=== PATIENT | male | born 1940 | race Caucasian/White ===

== ENCOUNTER 2016-09-23 15:32 | Inpatient (IN) | payer MEDICARE, BC ==
[~2016-09-23] VITALS: Ht 165.1 cm; Wt 87.8 kg
[~2016-09-23 15:32] MED LIST: ATOR20TA PO; CALC1CAP8 PO; CARB1TAB22 PO; CARV3.1212 PO; DABI150C PO; DORZ10DR21 TP; FOLI20CA PO; FURO40TA6 PO; GABA600T2 PO; LATA2.5D2 TP; LISI5TAB7 PO; POTA10TA11 PO; VIT1TABL32 PO; Will bring list DOS
[2016-09-23] MEDS ORDERED: KETOROLAC 30 MG/1 ML IVPush ONE (16:30)
[2016-09-23] MEDS ORDERED: SODIUM CHLORIDE FLUSH 10ML SYR IVF ONE (16:30)
[2016-09-23] MEDS ORDERED: LORazepam 2 MG/ML, 1ML IVPush ONE (16:30)
[2016-09-23 16:32] LABS: HEMATOCRIT 42.2 % (39.2-51.8); WHITE BLOOD COUNT 6.1 x10^3/uL (3.4-10)
[2016-09-23 16:37] LABS: ASPARTATE AMINO TRANSFERASE 30 U/L (15-37); BLOOD UREA NITROGEN 18 mg/dL (7-18)
[2016-09-23] MEDS ORDERED: KETOROLAC 30 MG/1 ML ONE (16:43)
[2016-09-23] MEDS ORDERED: LORazepam 2 MG/ML, 1ML ONE (16:44)
[2016-09-23] MEDS ORDERED: VIT1TABL32 PO (17:00)
[2016-09-23] MEDS ORDERED: POTASSIUM PO (17:00)
[2016-09-23] MEDS ORDERED: HYDR-883 PO (17:00)
[2016-09-23] MEDS ORDERED: CARB1TAB14 PO (17:00)
[2016-09-23 18:19] LABS: PATH.CAST-FLAG NOT PRESENT; SPERM-FLAG NOT PRESENT; SRC-FLAG NOT PRESENT; XTAL-FLAG NOT PRESENT; YLC-FLAG NOT PRESENT
[2016-09-23] MEDS ORDERED: ASPIRIN 81 MG TABLET CHEW PO ONE (19:00)
[2016-09-23] MEDS ORDERED: ASPIRIN 81 MG TABLET CHEW ONE (19:43)
[2016-09-23] MEDS ORDERED: ENTACAPONE PO SCH (21:00)
[2016-09-23] MEDS ORDERED: DOCUSATE 100 MG CAPSULE PO PRN (21:00)
[2016-09-23] MEDS ORDERED: LEVODOPA PO SCH (21:00)
[2016-09-23] MEDS: DABIGATRAN 150 MG CAPSULE PO SCH (21:00)
[2016-09-23] MEDS ORDERED: CARBIDOPA PO SCH (21:00)
[2016-09-23] MEDS ORDERED: POLYETHYLENE GLYCOL 17 GM PACKET PO PRN (21:00)
[2016-09-23] MEDS ORDERED: ONDANSETRON 2MG/ML, 2ML IVPush PRN (21:00)
[2016-09-23] MEDS ORDERED: BISACODYL 10 MG SUPP PR PRN (21:00)
[2016-09-23] MEDS: GABAPENTIN 300 MG CAPSULE PO SCH (21:00)
[2016-09-24] VITALS (7 sets, daily range): BP systolic 151–161; BP diastolic 95–111
[2016-09-24] MEDS: DORZOLAMIDE OPHTH 2%, 10ML EACHEYE SCH ×3 (01:39→23:34)
[2016-09-24] MEDS: ATORVASTATIN 20 MG TABLET PO SCH ×2 (01:40→23:36)
[2016-09-24] MEDS: CARVEDILOL 3.125 MG TABLET PO SCH ×3 (01:40→23:36)
[2016-09-24] MEDS: CARBIDOPA/LEVODOPA 25 MG/100 MG TABLET PO SCH ×7 (01:40→23:36)
[2016-09-24] MEDS: GABAPENTIN 300 MG CAPSULE PO SCH (09:00)
[2016-09-24] MEDS: LATANOPROST OPHTH 0.005%, 2.5ML EACHEYE SCH (10:05)
[2016-09-24] MEDS: TIMOLOL OPHTH 0.25%, 5ML EACHEYE SCH ×2 (10:06→21:00)
[2016-09-24] MEDS: FOLIC ACID 1 MG TABLET PO SCH (10:16)
[2016-09-24] MEDS: FUROSEMIDE 40 MG TABLET PO SCH (10:17)
[2016-09-24] MEDS: LISINOPRIL 5 MG TABLET PO SCH (10:17)
[2016-09-24] MEDS: DABIGATRAN 150 MG CAPSULE PO SCH (11:24)
[2016-09-24] MEDS: POTASSIUM CHLORIDE 10 MEQ TABLET.ER PO SCH (11:24)
[2016-09-24] MEDS: ENTACAPONE 200 MG TABLET PO SCH ×2 (11:29→23:36)
[2016-09-24] MEDS: GABAPENTIN 250 MG/5 ML ORAL SOL PO SCH ×4 (11:30→23:36)
[2016-09-24 11:56] LABS: PATH.CAST-FLAG NOT PRESENT; SPERM-FLAG NOT PRESENT; SRC-FLAG NOT PRESENT; XTAL-FLAG NOT PRESENT; YLC-FLAG NOT PRESENT
[2016-09-24] MEDS: SODIUM CHLORIDE 0.9% 1,000 ML IV SCH (16:49)
[2016-09-24 22:51] LABS: HEMATOCRIT 45.8 % (39.2-51.8); HEMOGLOBIN 15.6 g/dL (13.7-18.0)
[2016-09-24 23:10] LABS: GAS OBC PASS; GASTRIC OCCULT BLD POSITIVE (NEGATIVE); GASTRIC PH 1 (1-7)
[2016-09-25] MEDS: PANTOPRAZOLE 40 MG IV IVPush SCH ×2 (00:26→09:01)
[2016-09-25 01:39] VITALS: BP 157/92
[2016-09-25 04:44] LABS: HEMATOCRIT 41.9 % (39.2-51.8); HEMOGLOBIN 14.3 g/dL (13.7-18.0)
[2016-09-25] MEDS: CARBIDOPA/LEVODOPA 25 MG/100 MG TABLET PO SCH ×6 (06:03→22:10)
[2016-09-25 07:38] VITALS: BP 157/92
[2016-09-25] MEDS ORDERED: GABAPENTIN 250 MG/5 ML ORAL SOL PO SCH (09:00)
[2016-09-25] MEDS: TIMOLOL OPHTH 0.25%, 5ML EACHEYE SCH ×2 (09:00→20:03)
[2016-09-25] MEDS: POTASSIUM CHLORIDE 10 MEQ TABLET.ER PO SCH ×2 (09:00→09:02)
[2016-09-25] MEDS: GABAPENTIN 250 MG/5 ML ORAL SOL PO SCH ×3 (09:00→23:19)
[2016-09-25] MEDS: CARVEDILOL 3.125 MG TABLET PO SCH ×2 (09:01→20:06)
[2016-09-25] MEDS: LATANOPROST OPHTH 0.005%, 2.5ML EACHEYE SCH (09:01)
[2016-09-25] MEDS: FOLIC ACID 1 MG TABLET PO SCH (09:01)
[2016-09-25] MEDS: LISINOPRIL 5 MG TABLET PO SCH (09:03)
[2016-09-25] MEDS: ENTACAPONE 200 MG TABLET PO SCH ×2 (09:05→20:05)
[2016-09-25] MEDS: DORZOLAMIDE OPHTH 2%, 10ML EACHEYE SCH ×2 (09:05→20:02)
[2016-09-25] MEDS: SODIUM CHLORIDE 0.9% 1,000 ML IV SCH ×2 (09:08→22:08)
[2016-09-25 09:19] LABS: HEMATOCRIT 42.4 % (39.2-51.8); HEMOGLOBIN 14.3 g/dL (13.7-18.0); WHITE BLOOD COUNT 11.9 x10^3/uL (3.4-10)
[2016-09-25 09:24] LABS: BLOOD UREA NITROGEN 27 mg/dL (7-18)
[2016-09-25] MEDS: FUROSEMIDE 40 MG TABLET PO SCH (09:36)
[2016-09-25] MEDS ORDERED: CARBIDOPA/LEVODOPA 10 MG/100 MG TABLET PO PRN (11:30)
[2016-09-25 14:09] VITALS: BP 142/95
[2016-09-25] MEDS: HYDROcodone/APAP 5/325 TABLET PO PRN (15:18)
[2016-09-25 19:15] VITALS: BP 160/97
[2016-09-25] MEDS: ATORVASTATIN 20 MG TABLET PO SCH (20:05)
[2016-09-25] MEDS ORDERED: CARBIDOPA/LEVODOPA CR 25 MG/100 MG TABLET PO SCH (21:00)
[2016-09-26 00:25] VITALS: BP 151/97
[2016-09-26 00:33] LABS: HEMATOCRIT 43.6 % (39.2-51.8); HEMOGLOBIN 14.6 g/dL (13.7-18.0); WHITE BLOOD COUNT 16.4 x10^3/uL (3.4-10)
[2016-09-26] MEDS ORDERED: VANCOMYCIN PER PHARMACY MC PRN (01:00)
[2016-09-26] MEDS ORDERED: PHARMACOKINETIC MONITORING MC PRN (01:30)
[2016-09-26] MEDS: PIPERACILLIN/TAZO/PMX 3.375GM 50 ML IV SCH ×4 (01:37→18:19)
[2016-09-26] MEDS ORDERED: VANCOMYCIN 1,600 MG in SODIUM CHLORIDE 0.9% 250 ML IV ONE (02:00)
[2016-09-26 05:02] LABS: HEMATOCRIT 43.9 % (39.2-51.8); HEMOGLOBIN 14.5 g/dL (13.7-18.0); WHITE BLOOD COUNT 16.2 x10^3/uL (3.4-10)
[2016-09-26 05:11] LABS: ASPARTATE AMINO TRANSFERASE 27 U/L (15-37); BLOOD UREA NITROGEN 28 mg/dL (7-18)
[2016-09-26] MEDS: CARBIDOPA/LEVODOPA 25 MG/100 MG TABLET PO SCH ×6 (06:32→20:58)
[2016-09-26 07:19] VITALS: BP 122/99
[2016-09-26] MEDS: TIMOLOL OPHTH 0.25%, 5ML EACHEYE SCH ×2 (09:00→21:00)
[2016-09-26] MEDS: ENTACAPONE 200 MG TABLET PO SCH ×2 (09:00→20:58)
[2016-09-26] MEDS: POTASSIUM CHLORIDE 10% 20 MEQ/15 ML UDC PO SCH (09:32)
[2016-09-26] MEDS: LATANOPROST OPHTH 0.005%, 2.5ML EACHEYE SCH (09:32)
[2016-09-26] MEDS: GABAPENTIN 250 MG/5 ML ORAL SOL PO SCH ×3 (09:32→21:00)
[2016-09-26] MEDS: DORZOLAMIDE OPHTH 2%, 10ML EACHEYE SCH ×2 (09:32→21:00)
[2016-09-26] MEDS: PANTOPRAZOLE 40 MG IV IVPush SCH (09:33)
[2016-09-26] MEDS: FUROSEMIDE 40 MG TABLET PO SCH (09:34)
[2016-09-26] MEDS: FOLIC ACID 1 MG TABLET PO SCH (09:34)
[2016-09-26] MEDS: CARVEDILOL 3.125 MG TABLET PO SCH ×2 (09:34→21:00)
[2016-09-26] MEDS: LISINOPRIL 5 MG TABLET PO SCH (09:35)
[2016-09-26 12:57] VITALS: BP 108/76
[2016-09-26] MEDS: SODIUM CHLORIDE 0.9% 1,000 ML IV SCH (12:59)
[2016-09-26] MEDS: ENOXAPARIN 80 MG/0.8 ML SQ SCH (15:05)
[2016-09-26 19:07] VITALS: BP 120/79
[2016-09-26] MEDS: ATORVASTATIN 20 MG TABLET PO SCH (20:58)
[2016-09-27] MEDS: SODIUM CHLORIDE 0.9% 1,000 ML IV SCH (01:44)
[2016-09-27] MEDS: PIPERACILLIN/TAZO/PMX 3.375GM 50 ML IV SCH ×4 (01:44→19:38)
[2016-09-27] MEDS: VANCOMYCIN 1,600 MG in SODIUM CHLORIDE 0.9% 250 ML IV SCH (02:39)
[2016-09-27 02:53] VITALS: BP 116/74
[2016-09-27] MEDS: CARBIDOPA/LEVODOPA 25 MG/100 MG TABLET PO SCH ×6 (06:22→21:21)
[2016-09-27] MEDS: ENOXAPARIN 80 MG/0.8 ML SQ SCH ×2 (06:22→18:33)
[2016-09-27 07:28] VITALS: BP 141/89
[2016-09-27] MEDS: LISINOPRIL 5 MG TABLET PO SCH (10:22)
[2016-09-27] MEDS: PANTOPRAZOLE 40 MG IV IVPush SCH (10:22)
[2016-09-27] MEDS: POTASSIUM CHLORIDE 10% 20 MEQ/15 ML UDC PO SCH (10:22)
[2016-09-27] MEDS: ENTACAPONE 200 MG TABLET PO SCH ×2 (10:23→21:00)
[2016-09-27] MEDS: FOLIC ACID 1 MG TABLET PO SCH (10:23)
[2016-09-27] MEDS: CARVEDILOL 3.125 MG TABLET PO SCH ×2 (10:23→21:21)
[2016-09-27] MEDS: FUROSEMIDE 40 MG TABLET PO SCH (10:23)
[2016-09-27] MEDS: GABAPENTIN 250 MG/5 ML ORAL SOL PO SCH ×3 (10:37→21:22)
[2016-09-27] MEDS: DORZOLAMIDE OPHTH 2%, 10ML EACHEYE SCH ×2 (10:39→21:22)
[2016-09-27] MEDS: LATANOPROST OPHTH 0.005%, 2.5ML EACHEYE SCH (10:39)
[2016-09-27] MEDS: TIMOLOL OPHTH 0.25%, 5ML EACHEYE SCH ×2 (10:39→21:00)
[2016-09-27] MEDS: POTASSIUM PHOSPHATE 44 MEQ in SODIUM CHLORIDE 0.9% 500 ML IV SCH ×2 (12:25→18:33)
[2016-09-27 14:29] VITALS: BP 118/82
[2016-09-27 19:27] VITALS: BP 133/95
[2016-09-27] MEDS: ATORVASTATIN 20 MG TABLET PO SCH (21:20)
[2016-09-28 00:40] LABS: HEMATOCRIT 39.9 % (39.2-51.8); HEMOGLOBIN 13.2 g/dL (13.7-18.0); WHITE BLOOD COUNT 10.1 x10^3/uL (3.4-10)
[2016-09-28 00:41] LABS: BLOOD UREA NITROGEN 24 mg/dL (7-18)
[2016-09-28 01:24] VITALS: BP 159/94
[2016-09-28] MEDS: PIPERACILLIN/TAZO/PMX 3.375GM 50 ML IV SCH ×4 (01:59→18:41)
[2016-09-28] MEDS: SODIUM CHLORIDE 0.9% 1,000 ML IV SCH (06:21)
[2016-09-28] MEDS: ENOXAPARIN 80 MG/0.8 ML SQ SCH ×2 (06:22→18:42)
[2016-09-28] MEDS: CARBIDOPA/LEVODOPA 25 MG/100 MG TABLET PO SCH ×6 (06:22→20:55)
[2016-09-28 06:45] VITALS: BP 157/107
[2016-09-28] MEDS: TIMOLOL OPHTH 0.25%, 5ML EACHEYE SCH ×2 (09:00→20:54)
[2016-09-28] MEDS: ENTACAPONE 200 MG TABLET PO SCH ×2 (09:00→20:56)
[2016-09-28] MEDS: DORZOLAMIDE OPHTH 2%, 10ML EACHEYE SCH ×2 (10:28→20:53)
[2016-09-28] MEDS: LATANOPROST OPHTH 0.005%, 2.5ML EACHEYE SCH (10:29)
[2016-09-28] MEDS: PANTOPRAZOLE 40 MG IV IVPush SCH (10:30)
[2016-09-28] MEDS: CARVEDILOL 3.125 MG TABLET PO SCH ×2 (10:30→20:56)
[2016-09-28] MEDS: FOLIC ACID 1 MG TABLET PO SCH (10:30)
[2016-09-28] MEDS: FUROSEMIDE 40 MG TABLET PO SCH (10:30)
[2016-09-28] MEDS: LISINOPRIL 5 MG TABLET PO SCH (10:30)
[2016-09-28] MEDS: POTASSIUM CHLORIDE 10% 20 MEQ/15 ML UDC PO SCH (10:31)
[2016-09-28] MEDS: GABAPENTIN 250 MG/5 ML ORAL SOL PO SCH ×3 (10:31→20:54)
[2016-09-28 13:21] VITALS: BP 148/71
[2016-09-28] MEDS: VANCOMYCIN 1,600 MG in SODIUM CHLORIDE 0.9% 250 ML IV SCH (14:00)
[2016-09-28] MEDS ORDERED: POTASSIUM CHLORIDE 40 MEQ in SODIUM CHLORIDE 0.9% 500 ML IV ONE (17:30)
[2016-09-28 19:13] VITALS: BP 163/94
[2016-09-28] MEDS: ATORVASTATIN 20 MG TABLET PO SCH (20:55)
[2016-09-29 00:18] VITALS: BP 134/93
[2016-09-29] MEDS: PIPERACILLIN/TAZO/PMX 3.375GM 50 ML IV SCH ×4 (01:19→18:31)
[2016-09-29 05:35] LABS: HEMOGLOBIN 13.4 g/dL (13.7-18.0); WHITE BLOOD COUNT 8.6 x10^3/uL (3.4-10)
[2016-09-29] MEDS: ENOXAPARIN 80 MG/0.8 ML SQ SCH ×2 (05:41→17:11)
[2016-09-29] MEDS: CARBIDOPA/LEVODOPA 25 MG/100 MG TABLET PO SCH ×6 (05:41→22:30)
[2016-09-29 05:45] LABS: BLOOD UREA NITROGEN 19 mg/dL (7-18)
[2016-09-29 07:25] VITALS: BP 159/103
[2016-09-29] MEDS: ENTACAPONE 200 MG TABLET PO SCH ×2 (09:00→22:29)
[2016-09-29] MEDS: TIMOLOL OPHTH 0.25%, 5ML EACHEYE SCH ×2 (09:00→21:00)
[2016-09-29] MEDS: GABAPENTIN 250 MG/5 ML ORAL SOL PO SCH ×3 (09:25→22:30)
[2016-09-29] MEDS: DORZOLAMIDE OPHTH 2%, 10ML EACHEYE SCH ×2 (09:25→22:31)
[2016-09-29] MEDS: LATANOPROST OPHTH 0.005%, 2.5ML EACHEYE SCH ×2 (09:25→22:30)
[2016-09-29] MEDS: POTASSIUM CHLORIDE 10% 20 MEQ/15 ML UDC PO SCH (09:25)
[2016-09-29] MEDS: PANTOPRAZOLE 40 MG IV IVPush SCH (09:25)
[2016-09-29] MEDS: LISINOPRIL 5 MG TABLET PO SCH (09:26)
[2016-09-29] MEDS: FUROSEMIDE 40 MG TABLET PO SCH (09:26)
[2016-09-29] MEDS: FOLIC ACID 1 MG TABLET PO SCH (09:26)
[2016-09-29] MEDS: CARVEDILOL 3.125 MG TABLET PO SCH ×2 (09:26→22:30)
[2016-09-29] MEDS: SODIUM CHLORIDE 0.9% 1,000 ML IV SCH ×2 (09:27→22:32)
[2016-09-29 12:46] VITALS: BP 145/75
[2016-09-29 20:07] VITALS: BP 167/113
[2016-09-29] MEDS: ATORVASTATIN 20 MG TABLET PO SCH (22:30)
[2016-09-30 01:23] VITALS: BP 144/93
[2016-09-30] MEDS: PIPERACILLIN/TAZO/PMX 3.375GM 50 ML IV SCH ×4 (01:42→21:10)
[2016-09-30] MEDS: VANCOMYCIN 1,600 MG in SODIUM CHLORIDE 0.9% 250 ML IV SCH (02:50)
[2016-09-30] MEDS: CARBIDOPA/LEVODOPA 25 MG/100 MG TABLET PO SCH ×8 (06:08→21:59)
[2016-09-30] MEDS: ENOXAPARIN 80 MG/0.8 ML SQ SCH ×2 (06:09→17:26)
[2016-09-30 07:05] VITALS: BP_SYST 177; BP_SYST 190; BP_DIAS 123; BP_DIAS 132
[2016-09-30] MEDS: TIMOLOL OPHTH 0.25%, 5ML EACHEYE SCH ×2 (08:59→20:41)
[2016-09-30] MEDS: DORZOLAMIDE OPHTH 2%, 10ML EACHEYE SCH ×2 (09:06→20:40)
[2016-09-30] MEDS: PANTOPRAZOLE 40 MG IV IVPush SCH (09:07)
[2016-09-30] MEDS: POTASSIUM CHLORIDE 10% 20 MEQ/15 ML UDC PO SCH (09:16)
[2016-09-30] MEDS: FUROSEMIDE 40 MG TABLET PO SCH (09:54)
[2016-09-30] MEDS: FOLIC ACID 1 MG TABLET PO SCH (09:55)
[2016-09-30] MEDS: LISINOPRIL 5 MG TABLET PO SCH (09:55)
[2016-09-30] MEDS: CARVEDILOL 3.125 MG TABLET PO SCH ×2 (09:55→20:43)
[2016-09-30] MEDS: ENTACAPONE 200 MG TABLET PO SCH ×3 (09:55→21:00)
[2016-09-30] MEDS: GABAPENTIN 250 MG/5 ML ORAL SOL PO SCH ×3 (09:57→20:43)
[2016-09-30 14:05] VITALS: BP_SYST 175; BP_SYST 198; BP_DIAS 128; BP_DIAS 133
[2016-09-30] MEDS: HYDROcodone/APAP 5/325 TABLET PO PRN (14:24)
[2016-09-30] MEDS: SODIUM CHLORIDE 0.9% 1,000 ML IV SCH (14:25)
[2016-09-30] MEDS ORDERED: DOCUSATE 100 MG CAPSULE PO PRN (19:00)
[2016-09-30] MEDS ORDERED: ONDANSETRON 2MG/ML, 2ML IVPush PRN (19:00)
[2016-09-30] MEDS ORDERED: BISACODYL 10 MG SUPP PR PRN (19:00)
[2016-09-30 19:52] VITALS: BP 173/104
[2016-09-30] MEDS: ATORVASTATIN 20 MG TABLET PO SCH ×2 (20:43→21:59)
[2016-09-30] MEDS ORDERED: POTASSIUM PHOSPHATE 44 MEQ in SODIUM CHLORIDE 0.9% 500 ML IV ONE (21:00)
[2016-09-30] MEDS: LISINOPRIL 10 MG TABLET PO SCH (21:58)
[2016-09-30] MEDS: CARVEDILOL 6.25 MG TABLET PO SCH (21:58)
[2016-10-01 01:52] VITALS: BP 156/92
[2016-10-01] MEDS: PIPERACILLIN/TAZO/PMX 3.375GM 50 ML IV SCH ×4 (02:23→21:11)
[2016-10-01 05:28] LABS: HEMATOCRIT 40.5 % (39.2-51.8); HEMOGLOBIN 13.4 g/dL (13.7-18.0)
[2016-10-01 05:35] LABS: BLOOD UREA NITROGEN 17 mg/dL (7-18)
[2016-10-01] MEDS: CARBIDOPA/LEVODOPA 25 MG/100 MG TABLET PO SCH ×6 (05:38→21:10)
[2016-10-01] MEDS: ENOXAPARIN 80 MG/0.8 ML SQ SCH ×2 (05:39→18:10)
[2016-10-01] MEDS ORDERED: VANCOMYCIN 1,600 MG in SODIUM CHLORIDE 0.9% 250 ML IV SCH (06:00)
[2016-10-01 08:25] VITALS: BP 124/79
[2016-10-01] MEDS: TIMOLOL OPHTH 0.25%, 5ML EACHEYE SCH ×2 (10:10→21:00)
[2016-10-01] MEDS: DORZOLAMIDE OPHTH 2%, 10ML EACHEYE SCH ×2 (10:10→21:11)
[2016-10-01] MEDS: PANTOPRAZOLE 40 MG IV IVPush SCH (10:11)
[2016-10-01] MEDS: ENTACAPONE 200 MG TABLET PO SCH ×2 (10:11→21:00)
[2016-10-01] MEDS: CARVEDILOL 6.25 MG TABLET PO SCH ×2 (10:12→21:10)
[2016-10-01] MEDS: FUROSEMIDE 40 MG TABLET PO SCH (10:12)
[2016-10-01] MEDS: FOLIC ACID 1 MG TABLET PO SCH (10:12)
[2016-10-01] MEDS: GABAPENTIN 250 MG/5 ML ORAL SOL PO SCH ×3 (10:12→21:10)
[2016-10-01] MEDS: POTASSIUM CHLORIDE 10% 20 MEQ/15 ML UDC PO SCH (10:13)
[2016-10-01] MEDS: LISINOPRIL 10 MG TABLET PO SCH ×2 (10:13→21:10)
[2016-10-01] MEDS ORDERED: POTASSIUM CHLORIDE 20 MEQ TAB.ER.PRT NG ONE (11:30)
[2016-10-01 14:11] VITALS: BP 123/77
[2016-10-01 17:24] LABS: PATH.CAST-FLAG NOT PRESENT; SPERM-FLAG NOT PRESENT; SRC-FLAG NOT PRESENT; XTAL-FLAG NOT PRESENT; YLC-FLAG NOT PRESENT
[2016-10-01 19:10] VITALS: BP 146/64
[2016-10-01] MEDS: ATORVASTATIN 20 MG TABLET PO SCH (21:10)
[2016-10-01] MEDS: LATANOPROST OPHTH 0.005%, 2.5ML EACHEYE SCH (21:11)
[2016-10-02 01:39] VITALS: BP 137/58
[2016-10-02] MEDS: PIPERACILLIN/TAZO/PMX 3.375GM 50 ML IV SCH ×4 (03:27→21:07)
[2016-10-02 04:28] LABS: HEMATOCRIT 37.4 % (39.2-51.8); HEMOGLOBIN 12.3 g/dL (13.7-18.0); WHITE BLOOD COUNT 9.9 x10^3/uL (3.4-10)
[2016-10-02 04:38] LABS: BLOOD UREA NITROGEN 28 mg/dL (7-18)
[2016-10-02 04:41] LABS: ASPARTATE AMINO TRANSFERASE 28 U/L (15-37)
[2016-10-02] MEDS: ENOXAPARIN 80 MG/0.8 ML SQ SCH ×2 (06:02→21:07)
[2016-10-02] MEDS: CARBIDOPA/LEVODOPA 25 MG/100 MG TABLET PO SCH ×6 (06:02→21:11)
[2016-10-02 08:25] VITALS: BP 134/91
[2016-10-02] MEDS: TIMOLOL OPHTH 0.25%, 5ML EACHEYE SCH ×2 (08:44→21:08)
[2016-10-02] MEDS: DORZOLAMIDE OPHTH 2%, 10ML EACHEYE SCH ×2 (08:46→21:09)
[2016-10-02] MEDS: PANTOPRAZOLE 40 MG IV IVPush SCH (08:46)
[2016-10-02] MEDS: CARVEDILOL 6.25 MG TABLET PO SCH ×2 (08:49→21:10)
[2016-10-02] MEDS: FOLIC ACID 1 MG TABLET PO SCH (08:49)
[2016-10-02] MEDS: FUROSEMIDE 40 MG TABLET PO SCH (08:49)
[2016-10-02] MEDS: LISINOPRIL 10 MG TABLET PO SCH ×2 (08:49→21:11)
[2016-10-02] MEDS: POTASSIUM CHLORIDE 10% 20 MEQ/15 ML UDC PO SCH (08:50)
[2016-10-02] MEDS: GABAPENTIN 250 MG/5 ML ORAL SOL PO SCH ×3 (08:51→21:11)
[2016-10-02] MEDS: ENTACAPONE 200 MG TABLET PO SCH ×2 (08:51→21:10)
[2016-10-02 15:41] VITALS: BP 147/96
[2016-10-02] MEDS ORDERED: POTASSIUM CHLORIDE 20 MEQ TAB.ER.PRT PO SCH (17:00)
[2016-10-02 19:55] VITALS: BP 159/92
[2016-10-02] MEDS: LATANOPROST OPHTH 0.005%, 2.5ML EACHEYE SCH (21:09)
[2016-10-02] MEDS: ATORVASTATIN 20 MG TABLET PO SCH (21:10)
[2016-10-03 01:47] VITALS: BP 121/74
[2016-10-03] MEDS: PIPERACILLIN/TAZO/PMX 3.375GM 50 ML IV SCH ×4 (03:22→21:37)
[2016-10-03 05:45] LABS: HEMATOCRIT 39.9 % (39.2-51.8); HEMOGLOBIN 13.3 g/dL (13.7-18.0); WHITE BLOOD COUNT 10.5 x10^3/uL (3.4-10)
[2016-10-03 05:57] LABS: BLOOD UREA NITROGEN 31 mg/dL (7-18)
[2016-10-03] MEDS: CARBIDOPA/LEVODOPA 25 MG/100 MG TABLET PO SCH ×6 (06:05→21:41)
[2016-10-03 07:50] VITALS: BP 127/83
[2016-10-03] MEDS ORDERED: POTASSIUM CHLORIDE 20 MEQ PACKET PO SCH (08:00)
[2016-10-03] MEDS: ENTACAPONE 200 MG TABLET PO SCH ×2 (09:00→21:39)
[2016-10-03] MEDS: TIMOLOL OPHTH 0.25%, 5ML EACHEYE SCH ×2 (09:00→21:38)
[2016-10-03] MEDS: LISINOPRIL 10 MG TABLET PO SCH ×2 (10:16→21:40)
[2016-10-03] MEDS: FUROSEMIDE 40 MG TABLET PO SCH (10:16)
[2016-10-03] MEDS: CARVEDILOL 6.25 MG TABLET PO SCH ×2 (10:16→21:40)
[2016-10-03] MEDS: FOLIC ACID 1 MG TABLET PO SCH (10:16)
[2016-10-03] MEDS: GABAPENTIN 250 MG/5 ML ORAL SOL PO SCH ×3 (10:19→21:38)
[2016-10-03] MEDS: PANTOPRAZOLE 40 MG IV IVPush SCH (10:19)
[2016-10-03] MEDS: DORZOLAMIDE OPHTH 2%, 10ML EACHEYE SCH ×2 (10:19→21:38)
[2016-10-03 13:55] VITALS: BP 125/83
[2016-10-03] MEDS: POTASSIUM CHLORIDE 20 MEQ TAB.ER.PRT PO SCH (15:29)
[2016-10-03 19:07] VITALS: BP 160/92
[2016-10-03] MEDS: LATANOPROST OPHTH 0.005%, 2.5ML EACHEYE SCH (21:38)
[2016-10-03] MEDS: ATORVASTATIN 20 MG TABLET PO SCH (21:40)
[2016-10-04 02:22] VITALS: BP 143/101
[2016-10-04] MEDS: PIPERACILLIN/TAZO/PMX 3.375GM 50 ML IV SCH ×4 (03:03→20:01)
[2016-10-04] MEDS: CARBIDOPA/LEVODOPA 25 MG/100 MG TABLET PO SCH ×6 (06:00→19:59)
[2016-10-04] MEDS ORDERED: FENTANYL PF 100 MCG/2ML ONE (06:49)
[2016-10-04] MEDS ORDERED: BACITRACIN OINT 500U/GM, 15 GM ONE (06:53)
[2016-10-04] MEDS ORDERED: BACITRACIN 50,000 UNIT ONE (06:53)
[2016-10-04] MEDS ORDERED: BUPIVACAINE/PF-EPI 0.5% 1:200K ONE (06:53)
[2016-10-04 06:56] VITALS: BP 158/117
[2016-10-04] MEDS ORDERED: PROPOFOL 10 MG/ML, 20ML ONE (07:15)
[2016-10-04] MEDS ORDERED: CEFAZOLIN 1,000 MG ONE (07:15)
[2016-10-04] MEDS ORDERED: ONDANSETRON 2MG/ML, 2ML ONE (07:15)
[2016-10-04] MEDS ORDERED: ROCURONIUM 10 MG/ML ONE (07:15)
[2016-10-04] MEDS ORDERED: SUCCINYLCHOLINE 20 MG/ML, 10ML ONE (07:15)
[2016-10-04] MEDS ORDERED: PHENYLEPHRINE 10 MG/ML ONE (07:15)
[2016-10-04] MEDS ORDERED: BACITRACIN 50,000 UNIT IRRIG ONE (07:45)
[2016-10-04] MEDS ORDERED: BUPIVACAINE/PF 0.5% INFIL ONE (07:45)
[2016-10-04] MEDS ORDERED: BUPIVACAINE/PF-EPI 0.5% 1:200K INFIL ONE (07:57)
[2016-10-04] MEDS ORDERED: ONDANSETRON 2MG/ML, 2ML IVPush PRN (08:00)
[2016-10-04] MEDS ORDERED: FENTANYL PF 100 MCG/2ML IV PRN (08:00)
[2016-10-04] MEDS ORDERED: HYDROmorphone 1 MG/ML, 1ML IV PRN (08:00)
[2016-10-04] MEDS ORDERED: OXYcodone 5 MG/5 ML ORAL.SOL UDC PO PRN (08:00)
[2016-10-04] MEDS: LABETALOL 5MG/ML, 20ML IV PRN ×4 (08:24→09:07)
[2016-10-04] MEDS ORDERED: LABETALOL 5MG/ML, 20ML ONE (08:24)
[2016-10-04] MEDS: TIMOLOL OPHTH 0.25%, 5ML EACHEYE SCH ×2 (09:00→20:01)
[2016-10-04] MEDS ORDERED: LABETALOL 5MG/ML, 20ML IV ONE (09:30)
[2016-10-04] MEDS: CARVEDILOL 6.25 MG TABLET PO SCH ×2 (13:29→19:58)
[2016-10-04] MEDS: POTASSIUM CHLORIDE 20 MEQ TAB.ER.PRT PO SCH (13:29)
[2016-10-04] MEDS: FOLIC ACID 1 MG TABLET PO SCH (13:29)
[2016-10-04] MEDS: ENTACAPONE 200 MG TABLET PO SCH ×2 (13:29→20:03)
[2016-10-04] MEDS: PANTOPRAZOLE 40 MG IV IVPush SCH (13:29)
[2016-10-04] MEDS: DORZOLAMIDE OPHTH 2%, 10ML EACHEYE SCH ×2 (13:30→20:00)
[2016-10-04] MEDS: FUROSEMIDE 40 MG TABLET PO SCH (13:30)
[2016-10-04] MEDS: LISINOPRIL 10 MG TABLET PO SCH ×2 (13:30→19:58)
[2016-10-04] MEDS: GABAPENTIN 250 MG/5 ML ORAL SOL PO SCH ×3 (13:30→20:02)
[2016-10-04] MEDS: NS + 20MEQ KCL 1,000 ML IV SCH (13:34)
[2016-10-04 14:31] VITALS: BP 153/95
[2016-10-04 18:49] VITALS: BP 148/93
[2016-10-04] MEDS: ATORVASTATIN 20 MG TABLET PO SCH (19:58)
[2016-10-04] MEDS: LATANOPROST OPHTH 0.005%, 2.5ML EACHEYE SCH (20:00)
[2016-10-05] MEDS: PIPERACILLIN/TAZO/PMX 3.375GM 50 ML IV SCH ×4 (01:32→19:35)
[2016-10-05] MEDS: NS + 20MEQ KCL 1,000 ML IV SCH (01:33)
[2016-10-05 01:38] VITALS: BP 144/105
[2016-10-05 05:50] LABS: BLOOD UREA NITROGEN 25 mg/dL (7-18)
[2016-10-05 07:17] VITALS: BP 157/101
[2016-10-05] MEDS: DORZOLAMIDE OPHTH 2%, 10ML EACHEYE SCH ×2 (07:36→20:14)
[2016-10-05] MEDS: CARBIDOPA/LEVODOPA 25 MG/100 MG TABLET PO SCH ×5 (07:36→20:21)
[2016-10-05] MEDS: GABAPENTIN 250 MG/5 ML ORAL SOL PO SCH ×4 (07:37→20:21)
[2016-10-05] MEDS: CARVEDILOL 6.25 MG TABLET PO SCH ×2 (07:38→20:13)
[2016-10-05] MEDS: LISINOPRIL 10 MG TABLET PO SCH ×2 (07:38→20:21)
[2016-10-05] MEDS: PANTOPRAZOLE 40 MG IV IVPush SCH (07:38)
[2016-10-05] MEDS: TIMOLOL OPHTH 0.25%, 5ML EACHEYE SCH ×2 (07:39→20:14)
[2016-10-05] MEDS: ENTACAPONE 200 MG TABLET PO SCH ×2 (07:41→20:13)
[2016-10-05] MEDS: FOLIC ACID 1 MG TABLET PO SCH (07:41)
[2016-10-05] MEDS: FUROSEMIDE 40 MG TABLET PO SCH (07:42)
[2016-10-05 13:19] VITALS: BP 169/119
[2016-10-05] MEDS: hydrALAzine 20 MG/ML, 1ML IV PRN (14:39)
[2016-10-05 18:49] VITALS: BP 158/98
[2016-10-05] MEDS: LATANOPROST OPHTH 0.005%, 2.5ML EACHEYE SCH (20:15)
[2016-10-05] MEDS: ATORVASTATIN 20 MG TABLET PO SCH (20:21)
[2016-10-06] MEDS: PIPERACILLIN/TAZO/PMX 3.375GM 50 ML IV SCH ×4 (00:54→19:23)
[2016-10-06 02:00] VITALS: BP 132/90
[2016-10-06] MEDS ORDERED: POTASSIUM CHLORIDE 10% 20 MEQ/15 ML UDC PO ONE (07:30)
[2016-10-06 07:38] VITALS: BP 169/122
[2016-10-06] MEDS: hydrALAzine 20 MG/ML, 1ML IV PRN (08:02)
[2016-10-06 08:41] VITALS: BP 151/81
[2016-10-06] MEDS: PANTOPRAZOLE 40 MG IV IVPush SCH (09:59)
[2016-10-06] MEDS: DORZOLAMIDE OPHTH 2%, 10ML EACHEYE SCH ×2 (10:00→21:26)
[2016-10-06] MEDS: TIMOLOL OPHTH 0.25%, 5ML EACHEYE SCH ×2 (10:05→21:00)
[2016-10-06] MEDS ORDERED: NS + 20MEQ KCL 1,000 ML IV SCH (11:00)
[2016-10-06] MEDS: CARVEDILOL 6.25 MG TABLET PO SCH ×2 (13:02→21:27)
[2016-10-06] MEDS: ENTACAPONE 200 MG TABLET PO SCH ×2 (13:02→21:00)
[2016-10-06] MEDS: FUROSEMIDE 40 MG TABLET PO SCH (13:03)
[2016-10-06] MEDS: CARBIDOPA/LEVODOPA 25 MG/100 MG TABLET PO SCH ×4 (13:03→21:28)
[2016-10-06] MEDS: LISINOPRIL 10 MG TABLET PO SCH ×2 (13:03→21:30)
[2016-10-06] MEDS: GABAPENTIN 250 MG/5 ML ORAL SOL PO SCH ×3 (13:03→21:29)
[2016-10-06] MEDS: FOLIC ACID 1 MG TABLET PO SCH (13:03)
[2016-10-06] MEDS: HEPARIN 5,000 UNITS/ML, 1ML SQ SCH (13:04)
[2016-10-06 13:34] VITALS: BP 166/107
[2016-10-06 18:44] VITALS: BP 121/74
[2016-10-06 19:03] VITALS: BP 137/80
[2016-10-06] MEDS: LATANOPROST OPHTH 0.005%, 2.5ML EACHEYE SCH (21:26)
[2016-10-06] MEDS: ATORVASTATIN 20 MG TABLET PO SCH (21:27)
[2016-10-07] MEDS: HEPARIN 5,000 UNITS/ML, 1ML SQ SCH ×2 (01:02→12:54)
[2016-10-07] MEDS: PIPERACILLIN/TAZO/PMX 3.375GM 50 ML IV SCH ×4 (01:02→19:07)
[2016-10-07 03:33] VITALS: BP 138/92
[2016-10-07 06:21] LABS: HEMATOCRIT 43.1 % (39.2-51.8); HEMOGLOBIN 14.4 g/dL (13.7-18.0); WHITE BLOOD COUNT 10.6 x10^3/uL (3.4-10)
[2016-10-07 06:31] LABS: BLOOD UREA NITROGEN 26 mg/dL (7-18)
[2016-10-07 07:51] VITALS: BP 144/86
[2016-10-07] MEDS: CARBIDOPA/LEVODOPA 25 MG/100 MG TABLET PO SCH ×4 (09:00→20:32)
[2016-10-07] MEDS: DORZOLAMIDE OPHTH 2%, 10ML EACHEYE SCH ×2 (09:19→20:30)
[2016-10-07] MEDS: TIMOLOL OPHTH 0.25%, 5ML EACHEYE SCH ×2 (09:20→20:31)
[2016-10-07] MEDS: ENTACAPONE 200 MG TABLET PO SCH ×2 (09:20→20:31)
[2016-10-07] MEDS: PANTOPRAZOLE 40 MG IV IVPush SCH (09:21)
[2016-10-07] MEDS: CARVEDILOL 6.25 MG TABLET PO SCH ×2 (09:22→20:32)
[2016-10-07] MEDS: FOLIC ACID 1 MG TABLET PO SCH (09:22)
[2016-10-07] MEDS: FUROSEMIDE 40 MG TABLET PO SCH (09:23)
[2016-10-07] MEDS: LISINOPRIL 10 MG TABLET PO SCH ×2 (09:23→20:31)
[2016-10-07] MEDS: GABAPENTIN 250 MG/5 ML ORAL SOL PO SCH ×3 (09:23→20:33)
[2016-10-07 15:16] VITALS: BP 143/91
[2016-10-07 20:08] VITALS: BP 113/71
[2016-10-07] MEDS: LATANOPROST OPHTH 0.005%, 2.5ML EACHEYE SCH (20:29)
[2016-10-07] MEDS: ATORVASTATIN 20 MG TABLET PO SCH (20:31)
[2016-10-08] MEDS: HEPARIN 5,000 UNITS/ML, 1ML SQ SCH ×2 (00:15→12:29)
[2016-10-08] MEDS: PIPERACILLIN/TAZO/PMX 3.375GM 50 ML IV SCH ×2 (00:15→07:00)
[2016-10-08 00:22] VITALS: BP 121/82
[2016-10-08 06:49] VITALS: BP 147/86
[2016-10-08] MEDS: TIMOLOL OPHTH 0.25%, 5ML EACHEYE SCH ×2 (09:20→21:00)
[2016-10-08] MEDS: DORZOLAMIDE OPHTH 2%, 10ML EACHEYE SCH ×2 (09:21→21:33)
[2016-10-08] MEDS: ENTACAPONE 200 MG TABLET PO SCH ×2 (09:22→21:00)
[2016-10-08] MEDS: PANTOPRAZOLE 40 MG IV IVPush SCH (09:23)
[2016-10-08] MEDS: FUROSEMIDE 40 MG TABLET PO SCH (09:24)
[2016-10-08] MEDS: CARVEDILOL 6.25 MG TABLET PO SCH ×2 (09:25→21:35)
[2016-10-08] MEDS: CARBIDOPA/LEVODOPA 25 MG/100 MG TABLET PO SCH ×4 (09:25→21:35)
[2016-10-08] MEDS: GABAPENTIN 250 MG/5 ML ORAL SOL PO SCH ×3 (09:25→21:32)
[2016-10-08] MEDS: FOLIC ACID 1 MG TABLET PO SCH (09:25)
[2016-10-08] MEDS: LISINOPRIL 10 MG TABLET PO SCH ×2 (09:26→21:35)
[2016-10-08 12:58] VITALS: BP 125/90
[2016-10-08 18:31] VITALS: BP 130/84
[2016-10-08] MEDS: PHYTONADIONE 10 MG in SODIUM CHLORIDE 0.9% 50 ML IV SCH (20:03)
[2016-10-08] MEDS: LATANOPROST OPHTH 0.005%, 2.5ML EACHEYE SCH (21:33)
[2016-10-08] MEDS: ATORVASTATIN 20 MG TABLET PO SCH (21:35)
[2016-10-09 00:49] VITALS: BP 98/49
[2016-10-09 08:29] VITALS: BP 138/91
[2016-10-09] MEDS: TIMOLOL OPHTH 0.25%, 5ML EACHEYE SCH ×2 (09:00→21:00)
[2016-10-09] MEDS: DORZOLAMIDE OPHTH 2%, 10ML EACHEYE SCH ×2 (09:10→21:27)
[2016-10-09] MEDS: PANTOPRAZOLE 40 MG IV IVPush SCH (09:11)
[2016-10-09] MEDS: ENTACAPONE 200 MG TABLET PO SCH ×2 (09:11→21:28)
[2016-10-09] MEDS: CARVEDILOL 6.25 MG TABLET PO SCH ×2 (09:11→21:29)
[2016-10-09] MEDS: FOLIC ACID 1 MG TABLET PO SCH (09:11)
[2016-10-09] MEDS: CARBIDOPA/LEVODOPA 25 MG/100 MG TABLET PO SCH ×4 (09:11→21:28)
[2016-10-09] MEDS: GABAPENTIN 250 MG/5 ML ORAL SOL PO SCH ×3 (09:12→21:27)
[2016-10-09] MEDS: FUROSEMIDE 40 MG TABLET PO SCH (09:12)
[2016-10-09] MEDS: LISINOPRIL 10 MG TABLET PO SCH ×2 (09:12→21:29)
[2016-10-09] MEDS ORDERED: PROPOFOL 10 MG/ML, 50ML ONE (10:28)
[2016-10-09] MEDS ORDERED: CEFAZOLIN 1,000 MG ONE ×2 (10:28→15:02)
[2016-10-09] MEDS ORDERED: MIDAZOLAM 1 MG/ML, 2ML ONE ×2 (10:53→14:53)
[2016-10-09] MEDS ORDERED: FENTANYL PF 100 MCG/2ML ONE ×2 (10:53→14:53)
[2016-10-09 13:20] VITALS: BP 132/82
[2016-10-09] MEDS ORDERED: SODIUM CHLORIDE 0.9% 0 ML ONE (15:02)
[2016-10-09] MEDS ORDERED: PROMETHAZINE 25 MG/ML, 1ML IV PRN (16:00)
[2016-10-09] MEDS ORDERED: ONDANSETRON 2MG/ML, 2ML IVPush PRN (16:00)
[2016-10-09] MEDS ORDERED: OXYcodone 5 MG/5 ML ORAL.SOL UDC PO PRN (16:00)
[2016-10-09] MEDS ORDERED: FENTANYL PF 100 MCG/2ML IV PRN (16:00)
[2016-10-09] MEDS ORDERED: LABETALOL 5MG/ML, 20ML IV PRN (16:00)
[2016-10-09] MEDS ORDERED: HYDROmorphone 1 MG/ML, 1ML IV PRN (16:00)
[2016-10-09] MEDS ORDERED: MEPERIDINE/PF 25MG/0.5ML IVPush PRN (16:00)
[2016-10-09] MEDS ORDERED: hydrALAzine 20 MG/ML, 1ML IV PRN (16:00)
[2016-10-09] MEDS: SODIUM CHLORIDE 0.9% 100 ML IV SCH ×2 (17:30→17:33)
[2016-10-09] MEDS ORDERED: SODIUM CHLORIDE 0.9% 1,000 ML IV SCH (17:44)
[2016-10-09 19:11] VITALS: BP 155/97
[2016-10-09] MEDS: PHYTONADIONE 10 MG in SODIUM CHLORIDE 0.9% 50 ML IV SCH (21:27)
[2016-10-09] MEDS: LATANOPROST OPHTH 0.005%, 2.5ML EACHEYE SCH (21:28)
[2016-10-09] MEDS: ATORVASTATIN 20 MG TABLET PO SCH (21:29)
[2016-10-10 00:10] VITALS: BP 123/68
[2016-10-10 08:22] VITALS: BP 127/74
[2016-10-10] MEDS: PANTOPRAZOLE 40 MG IV IVPush SCH (09:00)
[2016-10-10] MEDS: CARVEDILOL 6.25 MG TABLET PO SCH ×2 (09:00→21:14)
[2016-10-10] MEDS: LISINOPRIL 10 MG TABLET PO SCH ×2 (09:00→21:14)
[2016-10-10] MEDS: FUROSEMIDE 40 MG TABLET PO SCH (09:00)
[2016-10-10] MEDS: DORZOLAMIDE OPHTH 2%, 10ML EACHEYE SCH ×2 (09:00→21:15)
[2016-10-10] MEDS: FOLIC ACID 1 MG TABLET PO SCH (09:00)
[2016-10-10] MEDS: ENTACAPONE 200 MG TABLET PO SCH ×2 (09:00→21:15)
[2016-10-10] MEDS: CARBIDOPA/LEVODOPA 25 MG/100 MG TABLET PO SCH ×4 (09:00→21:15)
[2016-10-10] MEDS: TIMOLOL OPHTH 0.25%, 5ML EACHEYE SCH ×2 (09:00→21:00)
[2016-10-10] MEDS: GABAPENTIN 250 MG/5 ML ORAL SOL PO SCH ×3 (09:00→21:16)
[2016-10-10 12:50] LABS: HEMATOCRIT 41.5 % (39.2-51.8); WHITE BLOOD COUNT 10.4 x10^3/uL (3.4-10)
[2016-10-10 13:01] LABS: BLOOD UREA NITROGEN 30 mg/dL (7-18)
[2016-10-10 13:43] VITALS: BP 139/87
[2016-10-10] MEDS ORDERED: POTASSIUM CHLORIDE 20 MEQ TAB.ER.PRT PO ONE (15:30)
[2016-10-10] MEDS ORDERED: POTASSIUM CHLORIDE 10% 40 MEQ/30 ML UDC PO ONE (15:30)
[2016-10-10] MEDS: PHYTONADIONE 10 MG in SODIUM CHLORIDE 0.9% 50 ML IV SCH (20:08)
[2016-10-10 21:00] VITALS: BP 162/103
[2016-10-10] MEDS: ATORVASTATIN 20 MG TABLET PO SCH (21:14)
[2016-10-10] MEDS: LATANOPROST OPHTH 0.005%, 2.5ML EACHEYE SCH (21:16)
[2016-10-11 03:30] VITALS: BP 139/84
[2016-10-11 08:30] VITALS: BP 149/83
[2016-10-11] MEDS: TIMOLOL OPHTH 0.25%, 5ML EACHEYE SCH ×2 (09:00→21:00)
[2016-10-11] MEDS: CARBIDOPA/LEVODOPA 25 MG/100 MG TABLET PO SCH ×4 (09:00→21:53)
[2016-10-11] MEDS: GABAPENTIN 250 MG/5 ML ORAL SOL PO SCH ×3 (10:07→21:54)
[2016-10-11] MEDS: FOLIC ACID 1 MG TABLET PO SCH (10:07)
[2016-10-11] MEDS: LISINOPRIL 10 MG TABLET PO SCH ×2 (10:07→21:54)
[2016-10-11] MEDS: PANTOPRAZOLE 40 MG IV IVPush SCH (10:08)
[2016-10-11] MEDS: DORZOLAMIDE OPHTH 2%, 10ML EACHEYE SCH ×2 (10:08→21:56)
[2016-10-11] MEDS: CARVEDILOL 6.25 MG TABLET PO SCH ×2 (10:08→21:54)
[2016-10-11] MEDS: FUROSEMIDE 40 MG TABLET PO SCH (10:09)
[2016-10-11] MEDS: ENTACAPONE 200 MG TABLET PO SCH ×2 (10:23→21:54)
[2016-10-11 13:20] VITALS: BP 138/92
[2016-10-11 20:04] VITALS: BP_SYST 136; BP_SYST 149; BP_DIAS 104; BP_DIAS 93
[2016-10-11] MEDS: ATORVASTATIN 20 MG TABLET PO SCH (21:54)
[2016-10-11] MEDS: LATANOPROST OPHTH 0.005%, 2.5ML EACHEYE SCH (21:55)
[2016-10-12 01:42] VITALS: BP 106/72
[2016-10-12 07:28] VITALS: BP 127/90
[2016-10-12] MEDS: CARVEDILOL 6.25 MG TABLET PO SCH ×2 (08:42→20:44)
[2016-10-12] MEDS: PANTOPRAZOLE 40 MG IV IVPush SCH (08:42)
[2016-10-12] MEDS: DORZOLAMIDE OPHTH 2%, 10ML EACHEYE SCH ×2 (08:42→20:49)
[2016-10-12] MEDS: TIMOLOL OPHTH 0.25%, 5ML EACHEYE SCH ×2 (08:43→20:55)
[2016-10-12] MEDS: GABAPENTIN 250 MG/5 ML ORAL SOL PO SCH ×3 (08:44→20:44)
[2016-10-12] MEDS: LISINOPRIL 10 MG TABLET PO SCH ×2 (08:44→20:44)
[2016-10-12] MEDS: FUROSEMIDE 40 MG TABLET PO SCH (08:44)
[2016-10-12] MEDS: FOLIC ACID 1 MG TABLET PO SCH (08:45)
[2016-10-12] MEDS: ENTACAPONE 200 MG TABLET PO SCH ×2 (08:46→20:45)
[2016-10-12] MEDS: CARBIDOPA/LEVODOPA 25 MG/100 MG TABLET PO SCH ×4 (08:46→20:46)
[2016-10-12 14:14] VITALS: BP 131/87
[2016-10-12 20:15] VITALS: BP 125/80
[2016-10-12] MEDS: ATORVASTATIN 20 MG TABLET PO SCH (20:46)
[2016-10-12] MEDS: LATANOPROST OPHTH 0.005%, 2.5ML EACHEYE SCH (20:48)
[2016-10-13 01:29] VITALS: BP 106/71
[2016-10-13 06:52] VITALS: BP 132/86
[2016-10-13] MEDS: DORZOLAMIDE OPHTH 2%, 10ML EACHEYE SCH ×2 (09:00→21:20)
[2016-10-13] MEDS: TIMOLOL OPHTH 0.25%, 5ML EACHEYE SCH ×2 (09:00→21:21)
[2016-10-13] MEDS: ENTACAPONE 200 MG TABLET PO SCH ×2 (09:00→21:18)
[2016-10-13] MEDS: CARBIDOPA/LEVODOPA 25 MG/100 MG TABLET PO SCH ×4 (09:00→21:19)
[2016-10-13] MEDS: CARVEDILOL 6.25 MG TABLET PO SCH ×2 (09:01→21:19)
[2016-10-13] MEDS: LISINOPRIL 10 MG TABLET PO SCH ×2 (09:01→21:19)
[2016-10-13] MEDS: FUROSEMIDE 40 MG TABLET PO SCH (09:01)
[2016-10-13] MEDS: CYANOCOBALAMIN 1,000 MCG TABLET PO SCH (09:02)
[2016-10-13] MEDS: FOLIC ACID 1 MG TABLET PO SCH (09:02)
[2016-10-13] MEDS: PANTOPRAZOLE 40 MG IV IVPush SCH (09:03)
[2016-10-13] MEDS: GABAPENTIN 250 MG/5 ML ORAL SOL PO SCH ×3 (09:04→21:17)
[2016-10-13] MEDS ORDERED: ENOXAPARIN 40 MG/0.4 ML SQ SCH (11:00)
[2016-10-13] MEDS: HEPARIN 5,000 UNITS/ML, 1ML SQ SCH ×2 (12:21→23:35)
[2016-10-13 13:46] VITALS: BP 128/83
[2016-10-13 19:24] VITALS: BP 124/85
[2016-10-13] MEDS: ATORVASTATIN 20 MG TABLET PO SCH (21:19)
[2016-10-13] MEDS: LATANOPROST OPHTH 0.005%, 2.5ML EACHEYE SCH (21:20)
[2016-10-14 01:19] VITALS: BP 108/69
[2016-10-14 06:33] LABS: HEMATOCRIT 44.1 % (39.2-51.8); HEMOGLOBIN 14.8 g/dL (13.7-18.0); WHITE BLOOD COUNT 10.4 x10^3/uL (3.4-10)
[2016-10-14 06:40] LABS: BLOOD UREA NITROGEN 34 mg/dL (7-18)
[2016-10-14 07:30] VITALS: BP 132/89
[2016-10-14] MEDS: ENTACAPONE 200 MG TABLET PO SCH ×2 (08:55→21:39)
[2016-10-14] MEDS: DORZOLAMIDE OPHTH 2%, 10ML EACHEYE SCH ×2 (08:55→21:42)
[2016-10-14] MEDS: TIMOLOL OPHTH 0.25%, 5ML EACHEYE SCH ×2 (08:55→21:41)
[2016-10-14] MEDS: PANTOPRAZOLE 40 MG IV IVPush SCH (08:56)
[2016-10-14] MEDS: CARVEDILOL 6.25 MG TABLET PO SCH ×2 (08:56→21:38)
[2016-10-14] MEDS: FOLIC ACID 1 MG TABLET PO SCH (08:57)
[2016-10-14] MEDS: CARBIDOPA/LEVODOPA 25 MG/100 MG TABLET PO SCH ×4 (08:57→21:40)
[2016-10-14] MEDS: CYANOCOBALAMIN 1,000 MCG TABLET PO SCH (08:57)
[2016-10-14] MEDS: LISINOPRIL 10 MG TABLET PO SCH ×2 (08:57→21:39)
[2016-10-14] MEDS: GABAPENTIN 250 MG/5 ML ORAL SOL PO SCH ×3 (08:58→21:41)
[2016-10-14] MEDS: FUROSEMIDE 40 MG TABLET PO SCH (08:58)
[2016-10-14] MEDS: HEPARIN 5,000 UNITS/ML, 1ML SQ SCH ×2 (12:57→23:14)
[2016-10-14 14:28] VITALS: BP 106/69
[2016-10-14] MEDS: LATANOPROST OPHTH 0.005%, 2.5ML EACHEYE SCH (21:42)
[2016-10-14] MEDS: ATORVASTATIN 20 MG TABLET PO SCH (22:03)
[2016-10-15 03:07] VITALS: BP 110/61
[2016-10-15 08:33] VITALS: BP 147/91
[2016-10-15] MEDS: TIMOLOL OPHTH 0.25%, 5ML EACHEYE SCH ×2 (10:05→20:56)
[2016-10-15] MEDS: ENTACAPONE 200 MG TABLET PO SCH ×2 (10:05→20:58)
[2016-10-15] MEDS: DORZOLAMIDE OPHTH 2%, 10ML EACHEYE SCH ×2 (10:10→20:55)
[2016-10-15] MEDS: PANTOPRAZOLE 40 MG IV IVPush SCH (10:10)
[2016-10-15] MEDS: CARVEDILOL 6.25 MG TABLET PO SCH ×2 (10:11→21:00)
[2016-10-15] MEDS: GABAPENTIN 250 MG/5 ML ORAL SOL PO SCH ×3 (10:12→21:23)
[2016-10-15] MEDS: FUROSEMIDE 40 MG TABLET PO SCH (10:12)
[2016-10-15] MEDS: FOLIC ACID 1 MG TABLET PO SCH (10:12)
[2016-10-15] MEDS: CARBIDOPA/LEVODOPA 25 MG/100 MG TABLET PO SCH ×4 (10:13→21:01)
[2016-10-15] MEDS: CYANOCOBALAMIN 1,000 MCG TABLET PO SCH (10:13)
[2016-10-15] MEDS: LISINOPRIL 10 MG TABLET PO SCH ×2 (10:13→20:59)
[2016-10-15] MEDS: HEPARIN 5,000 UNITS/ML, 1ML SQ SCH (11:28)
[2016-10-15 14:24] VITALS: BP 115/79
[2016-10-15 20:09] VITALS: BP 108/53
[2016-10-15] MEDS: ATORVASTATIN 20 MG TABLET PO SCH (20:59)
[2016-10-15] MEDS: LATANOPROST OPHTH 0.005%, 2.5ML EACHEYE SCH (21:00)
[2016-10-16] MEDS: HEPARIN 5,000 UNITS/ML, 1ML SQ SCH ×2 (00:08→13:23)
[2016-10-16 01:54] VITALS: BP 92/62
[2016-10-16] MEDS ORDERED: ASPIRIN 81 MG TABLET EC PO SCH (06:00)
[2016-10-16 07:04] VITALS: BP 112/75
[2016-10-16] MEDS: TIMOLOL OPHTH 0.25%, 5ML EACHEYE SCH ×2 (09:00→21:00)
[2016-10-16] MEDS: ENTACAPONE 200 MG TABLET PO SCH ×2 (09:00→21:00)
[2016-10-16] MEDS: DORZOLAMIDE OPHTH 2%, 10ML EACHEYE SCH ×2 (09:54→21:42)
[2016-10-16] MEDS: PANTOPRAZOLE 40 MG IV IVPush SCH (09:55)
[2016-10-16] MEDS: GABAPENTIN 250 MG/5 ML ORAL SOL PO SCH ×3 (09:56→21:42)
[2016-10-16] MEDS: CARVEDILOL 6.25 MG TABLET PO SCH ×2 (09:56→21:44)
[2016-10-16] MEDS: FOLIC ACID 1 MG TABLET PO SCH (09:56)
[2016-10-16] MEDS: FUROSEMIDE 40 MG TABLET PO SCH (09:56)
[2016-10-16] MEDS: CYANOCOBALAMIN 1,000 MCG TABLET PO SCH (09:57)
[2016-10-16] MEDS: CARBIDOPA/LEVODOPA 25 MG/100 MG TABLET PO SCH ×4 (09:57→21:45)
[2016-10-16] MEDS: LISINOPRIL 10 MG TABLET PO SCH ×2 (09:57→21:44)
[2016-10-16 14:28] VITALS: BP 107/74
[2016-10-16 19:19] VITALS: BP 110/66
[2016-10-16] MEDS: LATANOPROST OPHTH 0.005%, 2.5ML EACHEYE SCH (21:43)
[2016-10-16] MEDS: ATORVASTATIN 20 MG TABLET PO SCH (21:45)
[2016-10-16 22:06] VITALS: BP 114/76
[2016-10-17] MEDS: HEPARIN 5,000 UNITS/ML, 1ML SQ SCH ×3 (00:29→23:41)
[2016-10-17 01:07] VITALS: BP 117/72
[2016-10-17] MEDS: ASPIRIN 81 MG TABLET CHEW PO SCH (05:25)
[2016-10-17 06:30] VITALS: BP 119/83
[2016-10-17] MEDS: ENTACAPONE 200 MG TABLET PO SCH ×2 (09:00→21:00)
[2016-10-17] MEDS: PANTOPRAZOLE 40 MG IV IVPush SCH ×2 (09:00→12:17)
[2016-10-17] MEDS: TIMOLOL OPHTH 0.25%, 5ML EACHEYE SCH ×2 (09:00→21:00)
[2016-10-17] MEDS: DORZOLAMIDE OPHTH 2%, 10ML EACHEYE SCH ×2 (09:35→22:03)
[2016-10-17] MEDS: CARVEDILOL 6.25 MG TABLET PO SCH ×2 (09:37→22:05)
[2016-10-17] MEDS: FOLIC ACID 1 MG TABLET PO SCH (09:37)
[2016-10-17] MEDS: FUROSEMIDE 40 MG TABLET PO SCH (09:37)
[2016-10-17] MEDS: GABAPENTIN 250 MG/5 ML ORAL SOL PO SCH ×3 (09:38→22:04)
[2016-10-17] MEDS: CYANOCOBALAMIN 1,000 MCG TABLET PO SCH (09:38)
[2016-10-17] MEDS: CARBIDOPA/LEVODOPA 25 MG/100 MG TABLET PO SCH ×4 (09:38→22:05)
[2016-10-17] MEDS: LISINOPRIL 10 MG TABLET PO SCH ×2 (09:38→22:05)
[2016-10-17 15:09] VITALS: BP 102/70
[2016-10-17 19:35] VITALS: BP 112/72
[2016-10-17] MEDS: ATORVASTATIN 20 MG TABLET PO SCH (22:04)
[2016-10-17] MEDS: LATANOPROST OPHTH 0.005%, 2.5ML EACHEYE SCH (22:04)
[2016-10-18 00:54] VITALS: BP 97/64
[2016-10-18] MEDS: ASPIRIN 81 MG TABLET CHEW PO SCH (06:07)
[2016-10-18 07:33] VITALS: BP 103/70
[2016-10-18] MEDS: CYANOCOBALAMIN 1,000 MCG TABLET PO SCH (09:00)
[2016-10-18] MEDS: ENTACAPONE 200 MG TABLET PO SCH (09:00)
[2016-10-18] MEDS: TIMOLOL OPHTH 0.25%, 5ML EACHEYE SCH (09:00)
[2016-10-18] MEDS: CARBIDOPA/LEVODOPA 25 MG/100 MG TABLET PO SCH ×2 (10:41→10:43)
[2016-10-18] MEDS: FOLIC ACID 1 MG TABLET PO SCH (10:42)
[2016-10-18] MEDS: CARVEDILOL 6.25 MG TABLET PO SCH (10:43)
[2016-10-18] MEDS: LISINOPRIL 10 MG TABLET PO SCH (10:43)
[2016-10-18] MEDS: DORZOLAMIDE OPHTH 2%, 10ML EACHEYE SCH (10:44)
[2016-10-18] MEDS: GABAPENTIN 250 MG/5 ML ORAL SOL PO SCH (10:44)
[2016-10-18] MEDS: PANTOPRAZOLE 40 MG IV IVPush SCH (10:45)
[2016-10-18] MEDS: FUROSEMIDE 40 MG TABLET PO SCH (10:46)
[2016-10-18] MEDS: HEPARIN 5,000 UNITS/ML, 1ML SQ SCH (11:30)
[2016-10-18] MEDS ORDERED: ASPI-515 PO (11:37)
[2016-10-18] MEDS ORDERED: CARB1TAB22 PO (11:37)
[2016-10-18] MEDS ORDERED: CYAN10005 PO (11:37)
[2016-10-18] MEDS ORDERED: LISI-167 PO (11:37)
[2016-10-18] MEDS ORDERED: ENTA200T PO (11:37)
[2016-10-18] MEDS ORDERED: CARV6.2512 PO (11:37)
[2016-10-18] MEDS ORDERED: TIMO10DR12 EACHEYE (11:37)
[2016-10-18] MEDS ORDERED: OMEP20TA62 PO (11:37)
== END 2016-10-18 17:21 | DRG 40 ==
LOC: ED 17:13 → EDIP 18:57 → 3NE 21:35
PROVIDERS: ADMIT Internal Medicine; ATTEND Family Medicine
PROC: 0T9B70Z Drainage of Bladder with Drainage Device, Via Natural or Artificial Opening (ICD-10-PCS; 2016-09-23)
PROC: 0JPT0MZ Removal of Stimulator Generator from Trunk Subcutaneous Tissue and Fascia, Open Approach (ICD-10-PCS; 2016-10-04)
PROC: 0JH60MZ Insertion of Stimulator Generator into Chest Subcutaneous Tissue and Fascia, Open Approach (ICD-10-PCS; principal; 2016-10-04 07:30)
PROC: 0DH63UZ Insertion of Feeding Device into Stomach, Percutaneous Approach (ICD-10-PCS; 2016-10-09)
DX: T85.113A Breakdown (mechanical) of implanted electronic neurostimulator, generator, initial encounter (principal); J69.0 Pneumonitis due to inhalation of food and vomit; D68.69 Other thrombophilia; I50.32 Chronic diastolic (congestive) heart failure; N39.0 Urinary tract infection, site not specified; K92.2 Gastrointestinal hemorrhage, unspecified; I13.0 Hypertensive heart and chronic kidney disease with heart failure and stage 1 through stage 4 chronic kidney disease, or unspecified chronic kidney disease; G20 Parkinson's disease; D75.89 Other specified diseases of blood and blood-forming organs; E83.39 Other disorders of phosphorus metabolism; E86.0 Dehydration; E78.5 Hyperlipidemia, unspecified; E87.6 Hypokalemia; H35.30 Unspecified macular degeneration; H40.9 Unspecified glaucoma; I48.2 Chronic atrial fibrillation; I25.10 Atherosclerotic heart disease of native coronary artery without angina pectoris; B95.5 Unspecified streptococcus as the cause of diseases classified elsewhere; N18.3 Chronic kidney disease, stage 3 (moderate); Y83.8 Other surgical procedures as the cause of abnormal reaction of the patient, or of later complication, without mention of misadventure at the time of the procedure; R13.13 Dysphagia, pharyngeal phase; R47.02 Dysphasia; Z74.01 Bed confinement status; Z79.01 Long term (current) use of anticoagulants; Z85.46 Personal history of malignant neoplasm of prostate; Z93.1 Gastrostomy status; Z83.3 Family history of diabetes mellitus; Z95.5 Presence of coronary angioplasty implant and graft; Z88.5 Allergy status to narcotic agent; I25.2 Old myocardial infarction; Z82.49 Family history of ischemic heart disease and other diseases of the circulatory system; Y92.89 Other specified places as the place of occurrence of the external cause; Z66 Do not resuscitate
CPT/HCPCS: 36415; 70450; 71010; 74000; 74230; 80048; 80053; 80202; 81001; 82271; 82607; 82746; 83735; 84100; 84443; 85014; 85018; 85025; 85610; 85730; 87040; 87077; 87086; 87186; 87324; 93005; 93306; 96374; 96375; B4087; C1767; J0690; J1644; J1650; J1885; J2250; J2405; J2543; J2704; J3010; J3370; J3430; J3480; J3490; 92523-GN; C9113; J0330; J0360; J2060; J2370; J7030; J7040; J7050